=== PATIENT | male | born 1960 | race Asian ===

== ENCOUNTER → 2018-02-22 | Day surgery (SDC) | payer BC ==
[~2018-02-22] MED LIST: ALBUTEROL SULFATE 2.5 MG/3 ML NEBU. NEB PRN; ATROPINE 0.5 MG/5 ML DISP.SYRIN. IV PRN; IV RINGERS SOLUTION,LACTATED 1,000 ML IV SCH; LIDOCAINE 2% PF Vial for OR 5 ML VIAL. ONE; NALOXONE 0.4 MG/ML VIAL. IV PRN; ONDANSETRON PF 4 MG/2 ML VIAL. IV PRN; PROPOFOL 40 ML IV ONE
[2018-02-22 13:05] VITALS: BP 113/75
== END | disposition home or self-care (01) ==
LOC: SURG 11:20
PROVIDERS: ATTEND Internal Medicine Gastroenterology
DX: Z12.11 Encounter for screening for malignant neoplasm of colon (principal); K63.5 Polyp of colon; K57.30 Diverticulosis of large intestine without perforation or abscess without bleeding; M10.9 Gout, unspecified; Z79.899 Other long term (current) drug therapy
CPT/HCPCS: 45385; J7120